=== PATIENT | female | born 1970 | race Caucasian/White ===

== ENCOUNTER 2016-10-23 10:45 | Emergency (ER) | payer OTHER ==
[~2016-10-23] VITALS: Ht 154.9 cm; Wt 91.2 kg
[~2016-10-23 10:45] MED LIST: CLON2TAB3 PO; LAMO200T2 PO
[2016-10-23 11:02] VITALS: BP 119/89
--- NOTE | 2016-10-23 11:02 | NUR ---
PT TO ED ROOM 08. SELF PRESENTS TO ED: R UPPER EXTREMITY PAIN. DENIES TRAUMA. Hx OF RUE DVT 2006. A/A/O. AMBULATORY W/STEADY GAIT. SIDE RAISL UP. HOB ELEVATED. CONNECTED TO MIONITOR. AWAITING FOR PROVIDER EVAL.
--- NOTE | 2016-10-23 11:44 | NUR ---
PT IS REFUSING TO BE SEEN AT THIS TIME. PT ELOPED FROM THE EMERGENCY ROOM
== END 2016-10-23 12:01 | disposition left against medical advice (07) ==
LOC: ER 10:49
DX: Z53.21 Procedure and treatment not carried out due to patient leaving prior to being seen by health care provider (principal)
CPT/HCPCS: A4606; Z7610

== ENCOUNTER 2017-04-02 20:01 | Emergency (ER) | payer OTHER ==
[~2017-04-02] VITALS: Ht 154.9 cm; Wt 90.7 kg
[2017-04-02 20:09] VITALS: BP 139/82
== END 2017-04-02 20:42 | disposition home or self-care (01) ==
LOC: ER 20:07
DX: M25.511 Pain in right shoulder (principal); F41.9 Anxiety disorder, unspecified; I10 Essential (primary) hypertension; F17.200 Nicotine dependence, unspecified, uncomplicated; Z86.718 Personal history of other venous thrombosis and embolism; Z88.0 Allergy status to penicillin; Z88.6 Allergy status to analgesic agent
CPT/HCPCS: 96372 ×2; 99284; A4606; J1885; J2270; Q0162; Z7610

== ENCOUNTER 2017-06-04 14:38 | Emergency (ER) | payer OTHER ==
[~2017-06-04] VITALS: Ht 162.6 cm; Wt 74.8 kg
[2017-06-04 14:53] VITALS: BP 123/80
[2017-06-04] MEDS ORDERED: HYDROCODONE/APAP 10/325MG 1 EA TABLET PO ONE (15:30)
[2017-06-04] MEDS ORDERED: HYDROCODONE/APAP 10/325MG 1 EA TABLET ONE (15:33)
== END 2017-06-04 15:53 | disposition home or self-care (01) ==
LOC: ER 14:43
DX: M25.511 Pain in right shoulder (principal); I10 Essential (primary) hypertension; F41.9 Anxiety disorder, unspecified; F17.200 Nicotine dependence, unspecified, uncomplicated; Z76.5 Malingerer [conscious simulation]; Z88.8 Allergy status to other drugs, medicaments and biological substances; Z88.0 Allergy status to penicillin

== ENCOUNTER 2017-08-08 16:27 | Emergency (ER) | payer OTHER ==
[~2017-08-08] VITALS: Ht 154.9 cm; Wt 90.7 kg
[2017-08-08 16:34] VITALS: BP 115/77
--- NOTE | 2017-08-08 16:57 | NUR ---
PT PRESENTS WITH C/O COLD-LIKE SYMPTOMS (RUNNY/STUFFY NOSE, SNEEZING, SINUS PRESSURE, CONGESTION, HEADACHE, NON-PRODUCTIVE COUGH) X 2 DAYS. PT DENIES N/V/D. PT DENIES CHEST PAIN AND/OR SOB.
== END 2017-08-08 17:23 | disposition home or self-care (01) ==
LOC: ER 16:29
DX: J32.9 Chronic sinusitis, unspecified (principal); F17.200 Nicotine dependence, unspecified, uncomplicated; I10 Essential (primary) hypertension; F41.9 Anxiety disorder, unspecified; Z88.0 Allergy status to penicillin; Z88.6 Allergy status to analgesic agent
CPT/HCPCS: 99283; 99406; A4606; Z7610

== ENCOUNTER 2017-08-23 14:18 | Emergency (ER) | payer OTHER ==
[~2017-08-23] VITALS: Ht 154.9 cm; Wt 86.2 kg
[2017-08-23] MEDS ORDERED: METOCLOPRAMIDE HCL 10 MG/2 ML VIAL ONE (14:45)
[2017-08-23] MEDS ORDERED: HYDROMORPHONE INJ 0.5 MG/0.5 ML SYRINGE ONE (14:47)
[2017-08-23] MEDS ORDERED: METOCLOPRAMIDE HCL 10 MG/2 ML VIAL IV ONE (15:00)
[2017-08-23] MEDS ORDERED: HYDROMORPHONE 1 MG/1 ML DISP.SYRIN IV ONE (15:00)
[2017-08-23] MEDS ORDERED: IV NS 0.9% 1,000 ML IV ONE (15:00)
--- NOTE | 2017-08-23 15:01 | NUR ---
PT REC'D TO ER C/O CHAN FOR 3 DYS , IV STARTED RT AC 20G IVPB MEDS PER MD ORDER PT ON MONITOR RSTI NG AWAITING EVALUATION BY ER PROVIDER.
--- NOTE | 2017-08-23 15:49 | NUR ---
PT. VERBALIZED UNDERSTANDING OF AFTERCARE INSTRUCTIONS.Patient discharged to home in stable condition. Written and verbal after care instructions given. Patient verbalizes understanding of instruction.
[2017-08-23 15:51] VITALS: BP 122/82
--- NOTE | 2017-08-23 15:52 | NUR ---
IV removed. Catheter intact and site benign. Pressure and 4x4 applied to site. No bleeding noted.
== END 2017-08-23 15:52 | disposition home or self-care (01) ==
LOC: ER 14:19
DX: G43.909 Migraine, unspecified, not intractable, without status migrainosus (principal); I10 Essential (primary) hypertension; F41.9 Anxiety disorder, unspecified; F17.200 Nicotine dependence, unspecified, uncomplicated; Z88.6 Allergy status to analgesic agent
CPT/HCPCS: 96361; 96374; 96375; 99284; A4606; J2765; J7030; Z7610

== ENCOUNTER 2018-08-07 17:00 | Emergency (ER) | payer OTHER ==
[~2018-08-07] VITALS: Ht 154.9 cm; Wt 90.7 kg
--- NOTE | 2018-08-07 17:31 | NUR ---
BIB SELF W C/O TONGUE LAC S/P CUTTING IT WITH HER METAL TOOTH ACCIDENTALLY. TO ER BED 2, HOOKED TO MONITOR, VSS, AWAITING MD LANE
--- NOTE | 2018-08-07 17:35 | NUR ---
FABIANA DREW AT BEDSIDE
[2018-08-07] MEDS ORDERED: HYDROCODONE/APAP 5/325MG 1 EACH TABLET ONE (17:40)
[2018-08-07] MEDS ORDERED: HYDROCODONE/APAP 5/325MG 1 EACH TABLET PO ONE (18:00)
--- NOTE | 2018-08-07 18:04 | NUR ---
Patient discharged to home in stable condition. Written and verbal after care instructions given. Patient verbalizes understanding of instruction.
[2018-08-07 18:05] VITALS: BP 145/74
== END 2018-08-07 18:05 | disposition home or self-care (01) ==
LOC: ER 17:04
DX: S02.5XXA Fracture of tooth (traumatic), initial encounter for closed fracture (principal); S00.512A Abrasion of oral cavity, initial encounter; G43.909 Migraine, unspecified, not intractable, without status migrainosus; I10 Essential (primary) hypertension; F41.9 Anxiety disorder, unspecified; F17.200 Nicotine dependence, unspecified, uncomplicated; Z88.6 Allergy status to analgesic agent; Z79.899 Other long term (current) drug therapy; W26.8XXA Contact with other sharp object(s), not elsewhere classified, initial encounter; Y93.89 Activity, other specified; Y92.89 Other specified places as the place of occurrence of the external cause; Y99.8 Other external cause status
CPT/HCPCS: 99282; A4606; A6402; A6403

== ENCOUNTER 2019-03-21 19:12 | Emergency (ER) | payer OTHER ==
[~2019-03-21] VITALS: Ht 157.5 cm; Wt 86.2 kg
[2019-03-21 19:32] VITALS: BP 134/92
[2019-03-21] MEDS ORDERED: clonazePAM 1 MG TABLET ONE (20:13)
[2019-03-21] MEDS ORDERED: ONDANSETRON 4 MG TAB.RAPDIS ONE (20:13)
[2019-03-21] MEDS ORDERED: ONDANSETRON 4 MG TAB.RAPDIS PO ONE (20:30)
[2019-03-21] MEDS ORDERED: clonazePAM 1 MG TABLET PO ONE (20:30)
== END 2019-03-21 20:24 | disposition home or self-care (01) ==
LOC: ER 19:18
DX: M25.511 Pain in right shoulder (principal); G43.909 Migraine, unspecified, not intractable, without status migrainosus; F41.9 Anxiety disorder, unspecified; I10 Essential (primary) hypertension; G89.29 Other chronic pain; F17.200 Nicotine dependence, unspecified, uncomplicated; Z76.0 Encounter for issue of repeat prescription; Z88.6 Allergy status to analgesic agent; Z88.0 Allergy status to penicillin
CPT/HCPCS: 99283; Q0162

== ENCOUNTER 2019-05-31 23:54 | Emergency (ER) | payer OTHER ==
[~2019-05-31] VITALS: Ht 154.9 cm; Wt 72.6 kg
--- NOTE | 2019-06-01 00:05 | NUR ---
PT AAOX4. AMBULATORY. PT BIBSELF C/O DIFFICULTY SLEEPING SOMETIMES DUE TO HER "GASPING FOR AIR AT TIMES." PT ALSO COMPLAINS OF PALPITATIONS TIME TO TIME. UPON ASSESSMENT -SOB, -CHEST PAIN, VSS, RR EVEN AND UNLABORED. NO ACUTE DISTRESS NOTED. PT NOTED SHE HAS HX OF HTN AND ANXIETY.
[2019-06-01] MEDS ORDERED: LORAZEPAM 1 MG TABLET PO ONE (00:30)
--- NOTE | 2019-06-01 00:32 | NUR ---
DAIRY MANAGER AT BEDSIDE
[2019-06-01] MEDS ORDERED: LORAZEPAM 1 MG TABLET ONE (00:33)
[2019-06-01 00:41] LABS: BASOPHILS # (AUTO) 0.1 /CMM (0.0-0.2); BASOPHILS % (AUTO) 0.8 % (0.0-2.0); EOSINOPHILS % (AUTO) 3.1 % (0.0-6.0); HEMATOCRIT 39 % (33-45); HEMOGLOBIN 12.9 g/dL (11.5-14.8); LYMPHOCYTES # (AUTO) 1.2 /CMM (0.8-4.8); LYMPHOCYTES % (AUTO) 16.3 % (20.0-44.0); MEAN CORPUSCULAR HGB CONC 33 g/dl (31.0-36.0); MEAN CORPUSCULAR VOLUME 88 fL (82-100); MONOCYTES # (AUTO) 0.4 /CMM (0.1-1.30); MONOCYTES % (AUTO) 5.7 % (2.0-12.0); NEUTROPHILS # (AUTO) 5.4 /CMM (1.8-8.9); NEUTROPHILS % (AUTO) 74.1 % (43.0-81.0); PLATELET COUNT (AUTO) 319 /CMM (150-450); RED BLOOD CELL COUNT(AUTO) 4.44 MIL/uL (4.0-5.2); WHITE BLOOD COUNT (AUTO) 7.2 K/uL (4.3-11.0)
--- NOTE | 2019-06-01 00:43 | NUR ---
XRAY AT BEDSIDE
[2019-06-01 00:53] LABS: CALCIUM, SERUM 9.3 mg/dL (8.5-10.1); CARBON DIOXIDE 34 mmol/L (21-32); CHLORIDE 99 mmol/L (98-107); CREATININE 0.9 mg/dL (0.6-1.3); GLUCOSE 125 mg/dL (74-106); SODIUM SERUM 139 mmol/L (136-145); UREA NITROGEN, BLOOD 25 mg/dL (7-18)
[2019-06-01 01:06] LABS: ALANINE AMINOTRANSFERASE 357 U/L (12-78); ALBUMIN 3.5 g/dL (3.4-5.0); ALKALINE PHOSPHATASE 140 U/L (46-116); ASPARTATE AMINOTRANSFERASE 217 U/L (15-37); B-TYPE NATRIURETIC PEPTIDE 75 PG/ML (0-125); BILIRUBIN,DIRECT 0.2 mg/dL (0.0-0.2); BILIRUBIN,TOTAL 0.6 mg/dL (0.2-1.0); TOTAL PROTEIN, SERUM 6.8 g/dL (6.4-8.2)
--- NOTE | 2019-06-01 01:16 | NUR ---
PT RESTING COMFORTABLY. BLANKETS PROVIDED
--- NOTE | 2019-06-01 04:35 | NUR ---
PT IS SLEEPING SOUNDLY/ SNORING WITH NO S/S OF PAIN OR DISTRESS NOTED. PT IS ON THE MONITOR AND CONTINUOUS PULSE OX. VSS.
--- NOTE | 2019-06-01 05:30 | NUR ---
PT AMBULATED OVER TO THE PHONE WITH A STEADY GAIT. PT TRIED TO CALL HER FRIEND, BUT WAS NOT ABLE TO GET A HOLD OF HER.
--- NOTE | 2019-06-01 06:53 | NUR ---
Patient discharged to home in stable condition. Written and verbal after care instructions given. Patient verbalizes understanding of instruction AND RX. PT AMBULATED TO THE PHONE WITH A STEADY GAIT. PT LEFT A VOICE MESSAGE FOR HER FRIEND TO PICK HER UP. PT THEN AMBULATED TO THE LOBBY TO WAIT FOR P/U. VSS. NAD NOTED.
[2019-06-01 06:54] VITALS: BP 116/67
== END 2019-06-01 06:55 | disposition home or self-care (01) ==
LOC: ER 06-01 00:03
DX: F41.9 Anxiety disorder, unspecified (principal); G43.909 Migraine, unspecified, not intractable, without status migrainosus; I10 Essential (primary) hypertension; F17.200 Nicotine dependence, unspecified, uncomplicated; Z79.899 Other long term (current) drug therapy; Z88.0 Allergy status to penicillin; Z88.6 Allergy status to analgesic agent
CPT/HCPCS: 36415; 71045-TC; 80048-TC; 80076-TC; 83880; 84484-TC; 85025-TC

== ENCOUNTER 2020-12-08 21:22 | Emergency (ER) | payer OTHER ==
[~2020-12-08] VITALS: Ht 152.4 cm; Wt 81.6 kg
--- NOTE | 2020-12-08 21:26 | NUR ---
pt bibself c/o hives on left arm and back pain. Pt aaox4 breathing evenly and unlabored. Pa at bedside. Pt attached to monitor and pox. Will continue to monitor
[2020-12-08] MEDS ORDERED: HYDR-500 PO (21:49)
[2020-12-08] MEDS ORDERED: IBUP-1957 PO (21:49)
[2020-12-08] MEDS ORDERED: METH4TAB17 PO (21:49)
[2020-12-08] MEDS ORDERED: FAMOTIDINE (20 MG) 20 MG TABLET ONE (21:50)
[2020-12-08] MEDS ORDERED: HYDROCODONE/APAP 5/325MG TABLET ONE (21:50)
[2020-12-08] MEDS ORDERED: IBUPROFEN 400 MG TABLET ONE (21:50)
[2020-12-08] MEDS ORDERED: HYDROCODONE/APAP 5/325MG TABLET PO ONE (22:00)
[2020-12-08] MEDS ORDERED: IBUPROFEN 400 MG TABLET PO ONE (22:00)
[2020-12-08] MEDS ORDERED: FAMOTIDINE (20 MG) 20 MG TABLET PO ONE (22:00)
[2020-12-08 22:20] VITALS: BP 122/89
== END 2020-12-08 22:09 | disposition home or self-care (01) ==
LOC: ER 21:22
DX: L50.9 Urticaria, unspecified (principal); M54.6 Pain in thoracic spine; T49.0X5A Adverse effect of local antifungal, anti-infective and anti-inflammatory drugs, initial encounter; F17.210 Nicotine dependence, cigarettes, uncomplicated; G43.909 Migraine, unspecified, not intractable, without status migrainosus; I10 Essential (primary) hypertension; F41.9 Anxiety disorder, unspecified; Z88.6 Allergy status to analgesic agent; Z88.0 Allergy status to penicillin; Y92.89 Other specified places as the place of occurrence of the external cause

== ENCOUNTER 2021-07-09 17:31 | Emergency (ER) | payer OTHER ==
[~2021-07-09] VITALS: Ht 154.9 cm; Wt 90.7 kg
[~2021-07-09 17:31] MED LIST changes: +HYDR-500 PO; +IBUP-1957 PO; +METH4TAB17 PO
[2021-07-09 17:50] VITALS: BP 129/80
--- NOTE | 2021-07-09 20:40 | NUR ---
UPON EXAM BY ALBERT JUNG, PT WAS NOTIFIED THAT SHE WOULD NOT BE RECIEVING INJECTABLE OPIATES, PT BECAME VERBALLY AGGRESSIVE TOWARD ALBERT JUNG. PT CURSING AT STAFF. PT LEFT ER WITHOUT DISCHARGE INSTRUCTIONS.
[2021-07-09] MEDS ORDERED: DEXAMETHASONE SOD PHOSPHATE 4 MG/ML VIAL IM ONE (21:00)
--- NOTE | 2021-07-09 22:30 | NUR ---
Viola friedman in [facility] - 07/09/21 at 2232 by LAN Patient discharged to home in stable condition. Written and verbal after care instructions given. Patient verbalizes understanding of instruction.
== END 2021-07-09 22:31 | disposition home or self-care (01) ==
LOC: ER 18:17
DX: F11.20 Opioid dependence, uncomplicated (principal); M54.10 Radiculopathy, site unspecified; G89.29 Other chronic pain; G43.909 Migraine, unspecified, not intractable, without status migrainosus; I10 Essential (primary) hypertension; Z88.0 Allergy status to penicillin; Z88.8 Allergy status to other drugs, medicaments and biological substances; Z79.899 Other long term (current) drug therapy

== ENCOUNTER 2023-12-04 12:04 | Emergency (ER) | payer OTHER ==
[~2023-12-04] VITALS: Ht 154.9 cm; Wt 83.0 kg
[2023-12-04] MEDS ORDERED: ONDANSETRON HCL/PF 4 MG/2 ML VIAL ONE (12:49)
[2023-12-04] MEDS ORDERED: MORPHINE SULFATE INJ 4 MG/ML DISP.SYRIN ONE ×2 (12:49→14:40)
[2023-12-04] MEDS: IV NS 0.9% 1,000 ML BAG IV ONE (13:01)
[2023-12-04] MEDS: MORPHINE SULFATE INJ 2 MG/ML DISP.SYRIN IV ONE ×2 (13:02→14:45)
[2023-12-04] MEDS: ONDANSETRON HCL/PF 4 MG/2 ML VIAL IVP ONE (13:12)
[2023-12-04 13:41] LABS: BASOPHILS # (AUTO) 0.1 K/uL (0.0-0.2); BASOPHILS % (AUTO) 0.7 % (0.0-2.0); EOSINOPHILS # (AUTO) 0.3 K/uL (0.0-0.7); EOSINOPHILS % (AUTO) 4.5 % (0.0-6.0); HEMATOCRIT 41 % (33-45); HEMOGLOBIN 13.9 g/dL (11.5-14.8); LYMPHOCYTES # (AUTO) 2.5 K/uL (0.8-4.8); LYMPHOCYTES % (AUTO) 33.1 % (20.0-44.0); MEAN CORPUSCULAR HEMOGLOBIN 29 PG (26.0-33.0); MEAN CORPUSCULAR HGB CONC 34 g/dl (31.0-36.0); MEAN CORPUSCULAR VOLUME 87 fL (82-100); MONOCYTES # (AUTO) 0.4 K/uL (0.1-1.30); MONOCYTES % (AUTO) 4.8 % (2.0-12.0); NEUTROPHILS # (AUTO) 4.4 K/uL (1.8-8.9); NEUTROPHILS % (AUTO) 56.9 % (43.0-81.0); PLATELET COUNT (AUTO) 301 K/uL (150-450); RED BLOOD CELL COUNT(AUTO) 4.73 MIL/uL (4.0-5.2); RED CELL DISTRIBUTION WIDTH 13.9 % (11.5-15.0); WHITE BLOOD COUNT (AUTO) 7.7 K/uL (4.3-11.0)
[2023-12-04 13:44] LABS: CALCIUM, SERUM 9.2 mg/dL (8.5-10.1); CREATININE 0.7 mg/dL (0.6-1.3); POTASSIUM 4.1 mmol/L (3.5-5.1)
[2023-12-04 13:51] LABS: ALBUMIN 3.5 g/dL (3.4-5.0); BILIRUBIN,DIRECT 0.2 mg/dL (0.0-0.2); BILIRUBIN,TOTAL 0.8 mg/dL (0.2-1.0)
[2023-12-04 13:55] LABS: APPEARANCE,URINE CLEAR (CLEAR); BILIRUBIN,URINE NEGATIVE (NEGATIVE); BLOOD, URINE NEGATIVE Ery/uL (NEGATIVE); COLOR,URINE YELLOW (YELLOW); KETONES,URINE NEGATIVE (NEGATIVE); LEUKOCYTE ESTERASE ,URINE NEGATIVE (NEGATIVE); NITRITE, URINE NEGATIVE (NEGATIVE); PROTEIN,URINE NEGATIVE (NEGATIVE); UGLUCOSE NEGATIVE (NEGATIVE); UROBILINOGEN,URINE 0.2 EU/dL (0.2)
[2023-12-04 16:01] VITALS: BP 120/75; TEMP 97.6; O2SAT 97
== END 2023-12-04 16:02 | disposition home or self-care (01) ==
LOC: ER 12:10
DX: R10.31 Right lower quadrant pain (principal); I10 Essential (primary) hypertension; F17.200 Nicotine dependence, unspecified, uncomplicated; Z88.0 Allergy status to penicillin; Z88.8 Allergy status to other drugs, medicaments and biological substances
CPT/HCPCS: 99285; 74176; 96374; 96361; 96375; 96376; 85025; 80048; 83690; 80076; 81003; 36415; J2270 ×2; J2405; J7030

== ENCOUNTER 2024-02-26 12:07 | Emergency (ER) | payer OTHER ==
[~2024-02-26] VITALS: Ht 162.6 cm; Wt 68.0 kg
[2024-02-26] MEDS ORDERED: ONDANSETRON HCL/PF 4 MG/2 ML VIAL ONE (12:41)
[2024-02-26] MEDS ORDERED: FAMOTIDINE/PF INJ 20 MG/2 ML VIAL IV ONE (12:42)
[2024-02-26 12:55] LABS: BASOPHILS # (AUTO) 0.1 K/uL (0.0-0.2); BASOPHILS % (AUTO) 0.6 % (0.0-2.0); EOSINOPHILS # (AUTO) 0.1 K/uL (0.0-0.7); EOSINOPHILS % (AUTO) 0.9 % (0.0-6.0); HEMATOCRIT 46 % (33-45); HEMOGLOBIN 15.2 g/dL (11.5-14.8); LYMPHOCYTES # (AUTO) 1.4 K/uL (0.8-4.8); LYMPHOCYTES % (AUTO) 16.2 % (20.0-44.0); MEAN CORPUSCULAR HEMOGLOBIN 29 PG (26.0-33.0); MEAN CORPUSCULAR HGB CONC 33 g/dl (31.0-36.0); MEAN CORPUSCULAR VOLUME 88 fL (82-100); MONOCYTES # (AUTO) 0.2 K/uL (0.1-1.30); MONOCYTES % (AUTO) 2.4 % (2.0-12.0); NEUTROPHILS # (AUTO) 7.1 K/uL (1.8-8.9); NEUTROPHILS % (AUTO) 79.9 % (43.0-81.0); PLATELET COUNT (AUTO) 369 K/uL (150-450); RED BLOOD CELL COUNT(AUTO) 5.21 MIL/uL (4.0-5.2); RED CELL DISTRIBUTION WIDTH 13.8 % (11.5-15.0); WHITE BLOOD COUNT (AUTO) 8.8 K/uL (4.3-11.0)
[2024-02-26 12:56] LABS: CALCIUM, SERUM 9.6 mg/dL (8.5-10.1); CARBON DIOXIDE 27 mmol/L (21-32); CHLORIDE 101 mmol/L (98-107); CREATININE 0.8 mg/dL (0.6-1.3); GLUCOSE 145 mg/dL (74-106); POTASSIUM 3.7 mmol/L (3.5-5.1); SODIUM SERUM 139 mmol/L (136-145); UREA NITROGEN, BLOOD 10 mg/dL (7-18)
[2024-02-26] MEDS: IV NS 0.9% 1,000 ML BAG IV ONE (12:59)
[2024-02-26] MEDS: ONDANSETRON HCL/PF 4 MG/2 ML VIAL IVP ONE (13:00)
[2024-02-26] MEDS: FAMOTIDINE/PF INJ 20 MG/2 ML VIAL IV ONE (13:01)
[2024-02-26 13:02] LABS: ALANINE AMINOTRANSFERASE 16 U/L (12-78); ALBUMIN 3.9 g/dL (3.4-5.0); ALKALINE PHOSPHATASE 95 U/L (46-116); ASPARTATE AMINOTRANSFERASE 11 U/L (15-37); BILIRUBIN,DIRECT 0.2 mg/dL (0.0-0.2); BILIRUBIN,TOTAL 1.1 mg/dL (0.2-1.0); LIPASE 49 U/L (16-77); TOTAL PROTEIN, SERUM 7.3 g/dL (6.4-8.2)
[2024-02-26] MEDS ORDERED: ACETAMINOPHEN ES 500 MG TABLET ONE (13:18)
[2024-02-26] MEDS: ACETAMINOPHEN ES 500 MG TABLET PO ONE (13:22)
[2024-02-26] MEDS ORDERED: ONDA4TAB5 PO (13:39)
[2024-02-26 14:40] VITALS: BP 131/77; TEMP 97.6; O2SAT 100
== END 2024-02-26 14:40 | disposition home or self-care (01) ==
LOC: ER 12:08
DX: R11.2 Nausea with vomiting, unspecified (principal); R52 Pain, unspecified; I10 Essential (primary) hypertension; F17.210 Nicotine dependence, cigarettes, uncomplicated; Z88.0 Allergy status to penicillin; Z88.8 Allergy status to other drugs, medicaments and biological substances
CPT/HCPCS: 99285; 96374; 71045; 96361; 96375; 93005; 85025; 80048; 83690; 80076; 36415; 84484; J3490; J2405; J7030

== ENCOUNTER 2024-11-09 12:56 | Emergency (ER) | payer OTHER ==
[~2024-11-09] VITALS: Ht 152.4 cm; Wt 77.1 kg
[~2024-11-09 12:56] MED LIST changes: +ONDA4TAB5 PO
[2024-11-09] MEDS: HYDROCODONE/APAP 5/325MG TABLET PO ONE (13:20)
[2024-11-09] MEDS ORDERED: HYDROCODONE/APAP 5/325MG TABLET ONE (14:57)
[2024-11-09] MEDS ORDERED: LIDOCAINE 5% (PATCH) 1 EA PATCH TP ONE (14:57)
[2024-11-09] MEDS ORDERED: CYCL5TAB PO (15:08)
[2024-11-09] MEDS ORDERED: IBUP-1955 PO (15:08)
[2024-11-09] MEDS ORDERED: LIDO30AD10 TP (15:08)
[2024-11-09] MEDS: LIDOCAINE 5% (PATCH) 1 EA PATCH TP STA (15:10)
[2024-11-09 16:18] VITALS: BP 111/85; TEMP 98.3; O2SAT 98
== END 2024-11-09 16:18 | disposition home or self-care (01) ==
LOC: ER 12:58
DX: M25.511 Pain in right shoulder (principal); M79.601 Pain in right arm; I10 Essential (primary) hypertension; G89.29 Other chronic pain; F17.200 Nicotine dependence, unspecified, uncomplicated; Z79.1 Long term (current) use of non-steroidal anti-inflammatories (NSAID); Z86.718 Personal history of other venous thrombosis and embolism; Z88.0 Allergy status to penicillin; Z79.899 Other long term (current) drug therapy
CPT/HCPCS: 73030-TC; 93971-TC

== ENCOUNTER 2024-12-02 16:03 | Emergency (ER) | payer OTHER ==
[~2024-12-02] VITALS: Ht 152.4 cm; Wt 79.4 kg
[~2024-12-02 16:03] MED LIST changes: +CYCL5TAB PO; +IBUP-1955 PO; +LIDO30AD10 TP
[2024-12-02 16:19] VITALS: BP 140/75; TEMP 98.3; O2SAT 97
[2024-12-02] MEDS ORDERED: AMOX-430 PO (17:05)
[2024-12-02] MEDS ORDERED: TDAP [DIPH/PERTUSSIS/TET] 0.5 ML VIAL IM ONE (17:22)
[2024-12-02] MEDS: TDAP [DIPH/PERTUSSIS/TET] 0.5 ML VIAL IM ONE (17:26)
== END 2024-12-02 17:17 | disposition home or self-care (01) ==
LOC: ER 16:08
DX: S51.851A Open bite of right forearm, initial encounter (principal); F17.200 Nicotine dependence, unspecified, uncomplicated; I10 Essential (primary) hypertension; Z79.1 Long term (current) use of non-steroidal anti-inflammatories (NSAID); Z88.0 Allergy status to penicillin; Y04.1XXA Assault by human bite, initial encounter; Y93.89 Activity, other specified; Y92.89 Other specified places as the place of occurrence of the external cause; Y99.8 Other external cause status
CPT/HCPCS: 73030-TC; 90715